=== PATIENT | male | born 1945 | race Caucasian/White ===

== ENCOUNTER 2019-03-19 16:33 | Observation (INO) | payer OTHER ==
[~2019-03-19] VITALS: Ht 177.8 cm; Wt 72.6 kg
[~2019-03-19 16:33] MED LIST: ALLOPURINOL100 MG PO; CLINDAMYCIN HC300 MG PO; COL100 PO; HYDROMORPHONE1 MG/M1 IV; LAC PO; LOV30I SC; NOR5 PO; NORCO1 TA2 PO; TOR30I IV; TYL325 PO; ZOFRAN4 M2 PO
[2019-03-19 16:52] VITALS: Ht 177.8 cm; Wt 72.6 kg
[2019-03-19 17:39] LABS: BASOPHIL % 0.7 % (0-2); PLATELET COUNT 167 x10^3mcL (130-400)
[2019-03-19 17:41] LABS: RED CELL DISTRIBUTION WIDTH 14.9 % (11.5-14.5)
[2019-03-19 17:52] LABS: CALCIUM 8.5 mg/dL (8.5-10.1); CARBON DIOXIDE 24.2 mmol/L (21-32); CHLORIDE SERUM 101 mmol/L (98-107); CREATININE SERUM 1.5 mg/dL (0.7-1.3); GLUCOSE SERUM 108 mg/dL (74-106); POTASSIUM SERUM 3.4 mmol/L (3.5-5.1); SODIUM SERUM 136 mmol/L (136-145)
[2019-03-19 18:03] LABS: ALBUMIN 1.8 g/dL (3.4-5.0); ALKALINE PHOSPHATASE 124 U/L (46-116); ALT/SGPT 35 U/L (16-63); AST/SGOT 55 U/L (15-37); BILIRUBIN TOTAL 2.3 mg/dL (0.20-1.00); TOTAL PROTEIN, SERUM 6.1 g/dL (6.4-8.2)
[2019-03-19] MEDS ORDERED: HYDROXYZINE HYD25 MG PO (19:27)
[2019-03-19] MEDS ORDERED: ASPIR 8181 MG PO (19:28)
[2019-03-19] MEDS ORDERED: ACT300 PO (19:28)
[2019-03-19] MEDS ORDERED: METOPROLOL SUCC50 M2 PO (19:28)
[2019-03-19] MEDS ORDERED: ALDACTONE25 MG PO (19:28)
[2019-03-19] MEDS ORDERED: LACTULOSE10 GM/152 PO (19:29)
[2019-03-19] MEDS ORDERED: FUROSEMIDE40 MG PO (19:29)
[2019-03-19] MEDS ORDERED: PROSCAR5 MG PO (19:29)
[2019-03-19] MEDS ORDERED: NATURE'S BLEND F1 MG PO (19:29)
[2019-03-19] MEDS ORDERED: PROTONIX40 MG PO (19:29)
[2019-03-19] MEDS ORDERED: DIG125 PO (19:30)
[2019-03-19 21:16] VITALS: BP 114/63
[2019-03-20 06:16] LABS: BASOPHIL % 0.5 % (0-2)
[2019-03-20 06:21] LABS: CALCIUM 8.4 mg/dL (8.5-10.1); CARBON DIOXIDE 27.1 mmol/L (21-32); CHLORIDE SERUM 105 mmol/L (98-107); CREATININE SERUM 1.5 mg/dL (0.7-1.3); GLUCOSE SERUM 81 mg/dL (74-106); POTASSIUM SERUM 3.8 mmol/L (3.5-5.1); SODIUM SERUM 140 mmol/L (136-145)
[2019-03-20 06:25] VITALS: BP 116/50
[2019-03-20 07:09] LABS: PLATELET COUNT 118 x10^3mcL (130-400); RED CELL DISTRIBUTION WIDTH 14.9 % (11.5-14.5)
[2019-03-20 08:47] VITALS: BP 105/49
[2019-03-20 13:40] VITALS: BP 105/49
[2019-03-20 17:26] VITALS: BP 105/55
[2019-03-20 19:28] VITALS: BP 124/62
[2019-03-21 05:43] VITALS: BP 100/43
[2019-03-21 09:19] VITALS: BP 117/62
[2019-03-21 17:04] VITALS: BP 134/45
== END 2019-03-21 18:52 | DRG 555 ==
LOC: ED 16:33 → MU 20:02
PROVIDERS: Emergency Medicine; ADMIT Internal Medicine
DX: M25.551 Pain in right hip (principal); E43 Unspecified severe protein-calorie malnutrition; K70.30 Alcoholic cirrhosis of liver without ascites; R54 Age-related physical debility; I10 Essential (primary) hypertension; D64.9 Anemia, unspecified; M10.9 Gout, unspecified; F10.21 Alcohol dependence, in remission
CPT/HCPCS: 36600; 83880; 92526-GN; 92610; 97110-GP; 97116-GP; 97530-GP; G0378; J1644; J7030; Q0092

== ENCOUNTER 2019-05-31 19:45 | Inpatient (IN) | payer OTHER ==
[~2019-05-31] VITALS: Ht 177.8 cm; Wt 82.0 kg
[~2019-05-31 19:45] MED LIST changes: +ACT300 PO; +ALDACTONE25 MG PO; +ASPIR 8181 MG PO; +DIG125 PO; +FUROSEMIDE40 MG PO; +HYDROXYZINE HYD25 MG PO; +LACTULOSE10 GM/152 PO; +METOPROLOL SUCC50 M2 PO; +NATURE'S BLEND F1 MG PO; +PROSCAR5 MG PO; +PROTONIX40 MG PO
--- NOTE | 2019-05-31 20:01 | NUR ---
PT BIBA FOR RECTAL BLEEDING. PER OUTBOARD MOTORBOAT RIGGER PT EXPERIENCE BLEEDING DURING BOWEL MOVEMENTS W/BRIGHT RED BLOOD. PT DENEIS PAIN AT THIS TIME. PT A/O X4. NO S/S OF DISTRESS. RESP E/U. AWAITING MSE. PT SITTING UP ON GURNEY. TALKING IN COMPLETE SENTENES. PT STS HE HAS FELT WEAK THE LAST FEW DAYS. COMFORT MEASURES IMPLEMENTED. FAMILY AT BEDSIDE WILL CONTINUE TO MONITOR.
--- NOTE | 2019-05-31 20:23 | NUR ---
LAB AT BEDSIDE.
[2019-05-31 20:50] LABS: PLATELET COUNT 133 x10^3mcL (130-400)
[2019-05-31 20:53] LABS: RED CELL DISTRIBUTION WIDTH 23.3 % (11.5-14.5)
[2019-05-31 21:09] LABS: BAND NEUTROPHIL 1 % (0-10); BASOPHIL 0 % (0-2); MONOCYTE 8 % (0-7); SEGMENTED NEUTROPHILS 50 % (37-75); ovalocyte/elliptocyte 1+; rbc morphology (normal/abnorm) ABNORMAL (NORMAL); target cell (codocyte) 1+; tear drop cell (dacryocyte) 1+
[2019-05-31 21:10] LABS: PLATELET MORPHOLOGY PLATELETS NORMAL
[2019-05-31 21:20] LABS: CARBON DIOXIDE 25.9 mmol/L (21-32); CHLORIDE SERUM 104 mmol/L (98-107); CREATININE SERUM 2.1 mg/dL (0.7-1.3); GLUCOSE SERUM 113 mg/dL (74-106); POTASSIUM SERUM 3.7 mmol/L (3.5-5.1); SODIUM SERUM 139 mmol/L (136-145)
[2019-05-31 21:27] LABS: ALKALINE PHOSPHATASE 120 U/L (46-116); ALT/SGPT 18 U/L (16-63); AST/SGOT 50 U/L (15-37); TOTAL PROTEIN, SERUM 6.3 g/dL (6.4-8.2)
[2019-05-31 21:31] LABS: ALBUMIN 1.7 g/dL (3.4-5.0); CHOLESTEROL 98 mg/dL (<200); HDL CHOLESTEROL 31 mg/dL (40-60)
--- NOTE | 2019-05-31 21:37 | NUR ---
PT MEDICATED PER ORDER. PT VERBALIZED UNDERSTANDING OF MEDICATION TEACHING. SEE EMAR FOR DETAILS.
[2019-05-31] MEDS ORDERED: ASPIR LOW81 MG PO (22:03)
[2019-05-31] MEDS ORDERED: XIFAXAN550 M1 PO (22:03)
[2019-05-31] MEDS ORDERED: FERROUS SULFAT325 M2 PO (22:04)
[2019-05-31] MEDS ORDERED: ESCITALOPRAM10 M1 PO (22:04)
--- NOTE | 2019-05-31 22:16 | NUR ---
REPORT GIVEN TO SAMAN FARAH TO ASSUME CARE OF PT. WHILE GIVING REPORT SOFI STS SHE NEEDS TO SPEAK W/CHARGE NURSE ABOUT BLOOD PRESSURE. WILL CALL BACK.
--- NOTE | 2019-05-31 22:32 | NUR ---
PT RECEIVED A/O X4, ABLE TO MAKE NEEDS KNOWN AND FOLLOW SIMPLE COMMANDS. TELE #14, DENIES ANY CP/PRESSURE. WEAK PEDAL PULSES, EDEMA TO BLE. BREATHING IS EVEN AND UNLABORED ON RA, NO RESP DISTRESS NOTED. ABD FIRM AND DISTENDED, BOWEL TONES HYPOACTIVE X4 QUAD, DENIES N/V. PT ADMITTED FOR RECTAL BLEED, NO RECTAL BLEED OBSERVED. PT HAS EPISODES OF URINARY INCONTINENCE. GENERALIZED WEAKNESS. DRSG IN PLACE TO LUE, CDI. PT NOTED WITH MANY SMALL SCABS AND SCATTERED RED DOTS. IV BOLUS ONGOING TO REJ PATENT AND INTACT, SITE WNL. ORIENTED PT TO ROOM AND CALL LIGHT. SPOUSE AT BEDSIDE. NO ACUTE DISTRESS NOTED. BED ALARM ON. CALL LIGHT WITHIN REACH. WILL CONT TO MONITOR.
--- NOTE | 2019-05-31 22:34 | NUR ---
RECEIVED PT FROM ED VIA GUERNEY, CAME IN FOR RECTAL BLEED. AAOX4. DENIES HEADACHE/DIZZINESS. NO SOB NOTED, LUNG SOUNDS DIMINISHED ON AUSCULTATION. DENIES CHEST PAIN/PRESSURE, SR W/ BBB. W/ +2 EDEMA ON BLE. WEAK PEDAL PULSES. DENIES ABDOMINAL PAIN/NAUSEA/VOMITING. ABDOMEN IS DISTENDED AND FIRM. BOWEL SOUNDS HYPAOCTIVE. VOIDS. W/ GENERALIZED BODY ERYTHEMA AND SCABS, BUE ECCHYMOSIS, 2 SKIN TEARS ON THE LUE, 2 OPEN WOUNDS ON RUE, NON-BLANCHABLE ERYTHEMA ON RIGHT HEEL AND RIGHT BUTTOCK. LEFT ARM SKIN TEARS WERE COVERED W/ OIL EMULSION, NON-ADHERENT DRESSING AND KERLIX DRESSING. IV SITE ON THE REJ GAUGE 20 IS PATENT AND INTACT. SIDE RAILS UPX2. CALL LIGHT ON REACH. HOBE ELEVATED AT 30 DEG. PRIMARY NURSE SOFI AT BEDSIDE FOR CONTINUITY OF CARE
--- NOTE | 2019-05-31 22:34 | NUR ---
PT TRANSFERRED TO TELE FLOOR BY NURSE AND EMT. PT CONNECTED TO MONITOR DURING TRANSFER. NO S/S OF DISTRESS. RESP E/U. PER TELE CHARGE NURSE AND HOUSE SUPERVISIOR, OK TO ADMIT TO TELE FLOOR. RN MADE AWARE OF FLUIDS. IV SITE PATENT.
[2019-05-31 23:10] VITALS: BP 93/54
[2019-06-01] VITALS (7 sets, daily range): BP systolic 81–102; BP diastolic 35–55
--- NOTE | 2019-06-01 00:09 | NUR ---
RECEIVED CALL BACK FROM DR NICHOLSON. DR NICHOLSON MADE AWARE OF PT WITH POSSIBLE SCABIES, ORDERS RECEIVED FOR WOUND CONSULT AND MEDICATIONS.
--- NOTE | 2019-06-01 01:42 | NUR ---
BOLUS COMPLETED. BP-84/35 (51) HR-63, RECHECK-81/45 (57) HR-61. PT IN NO ACUTE DISTRESS. DR NICHOLSON CALLED AND MADE AWARE. ORDERS RECEIVED.
--- NOTE | 2019-06-01 02:08 | NUR ---
ALBUMIN IV INITIATED ORDERED. PER DR NICHOLSON, " LONG PATIENT IS ALERT AND ORIENTED, THE SYSTOLIC BP OF 85-90 IS OKAY BECAUSE PT HAS HX OF LIVER CIRRHOSIS." PT IN NO ACUTE DISTRESS. WILL CONT TO MONITOR.
--- NOTE | 2019-06-01 04:22 | NUR ---
ALBUMIN IV DONE INFUSING, BP-102/48 (66) HR-69. NO ACUTE DISTRESS NOTED. WILL CONT TO MONITOR.
--- NOTE | 2019-06-01 06:37 | NUR ---
PT SLEPT AT INTERVALS THROUGHOUT THE EVENING. BREATHING IS EVEN AND UNLABORED, NO RESP DISTRESS NOTED. PT DENIES HAVING ANY PAIN AT THIS TIME. SL TO REJ, PATENT AND INTACT, SITE FREE FROM REDNESS OR SWELLING. NO ACUTE CHANGES ENCOUNTERED DURING SHIFT. ALL NEEDS MET AND ANTICIPATED. CALL LIGHT WITHIN REACH. WILL ENDORSE CARE TO AM NURSE.
[2019-06-01 07:09] LABS: PLATELET COUNT 82 x10^3mcL (130-400); RED CELL DISTRIBUTION WIDTH 23.4 % (11.5-14.5)
[2019-06-01 07:20] LABS: ALKALINE PHOSPHATASE 78 U/L (46-116); ALT/SGPT 19 U/L (16-63); AST/SGOT 39 U/L (15-37); BILIRUBIN TOTAL 1.6 mg/dL (0.20-1.00); CALCIUM 8.8 mg/dL (8.5-10.1); CARBON DIOXIDE 25.4 mmol/L (21-32); CHLORIDE SERUM 107 mmol/L (98-107); CREATININE SERUM 1.7 mg/dL (0.7-1.3); GLUCOSE SERUM 77 mg/dL (74-106); POTASSIUM SERUM 3.2 mmol/L (3.5-5.1); SODIUM SERUM 143 mmol/L (136-145)
[2019-06-01 07:26] LABS: ALBUMIN 2.2 g/dL (3.4-5.0); TOTAL PROTEIN, SERUM 5.7 g/dL (6.4-8.2)
--- NOTE | 2019-06-01 07:40 | NUR ---
RECEIVED PT FROM LAWN CARE TECHNICIAN. ASSESSED AND WILL DOCUMENT. DENIES ANY PAIN THIS TIME. NO RECAL BLEEDING NOTED THIS TIME. SAFTEY PRECAUTIONS ARE IN PLACE. WILL MONITOR.
--- NOTE | 2019-06-01 09:20 | NUR ---
AND SEEN THE PT. SAID HE IS OREDERING SANDOSTATIN DRIP AND VIT K DRIP AND ALSO BLOOD. INFORMED ABOUT PT K=3.2 AND BP 95/36 WITH MAP 55. SAID HE WILL TRANSFER PT TO ICU. CHARGE NURSE AWARE. PT IS STABLE BUT SLIGHTLY LETHARGIC.
--- NOTE | 2019-06-01 09:50 | NUR ---
TRANSFERED PT TO ICU PER ORDER. PT IS STABLE BUT SLIGHTLY LETHARGIC. DENIES ANY PAIN. PT'S IS COMING DOWN WITH PT. GAVE REPORT TO ICU NURSE.
--- NOTE | 2019-06-01 09:55 | NUR ---
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 PT LETHARGIC BUT ORIENTED TO PERSON, PLACE, TIME. PERRL. NO FACIAL DROOP NOTED. SPEECH SLOW BUT CLEAR AND APPROPRIATE. SINUS WITH OCCASSIONAL PVC'S NOTED. VS: TEMP = 97.8, BP = 92/50 (64), HR = 78, RR = 12, O2 92%, PAIN = 8/10 ALL THROUGHOUT BODY, BREATHING E/U. SYMMETRICAL CHEST WALL EXPANSION NOTED. S1/S2 HEART SOUNDS AUDIBLE. DENIES CP AT THIS TIME. MOD PALPABLE PULSES TO BUE, WEAK PULSES TO BLE. SKIN IS WARM/DRY TO TOUCH, PALE IN COLOR. SCATTERED PETECHIAE AND SCABS NOTED ALL THROUGHOUT BODY. +2 PITTING EDEMA NOTED TO BLE. PIV TO R EJ INTACT, PORT PATENT, DRESSING CDI. ABD IS FIRM, DISTENDED, AND TENDER. NO BM AT THIS TIME. NO PENILE DISCHARGE OR BLEEDING NOTED.
--- NOTE | 2019-06-01 10:30 | NUR ---
PT PLACED ON 4L NASAL CANNULA DUE TO O2 SAT OF 90%.
--- NOTE | 2019-06-01 10:45 | NUR ---
ATTEMPTED TO PUT IN LEYVA CATHETER IN PT BY ME AND CARLITA DAVISON. UNCESSFUL ATTEMPT. SPOKE TO ABOUT THE NEED TO PUT A LEYVA CATHETER IN PT AND PT'S STATED THAT "SHE DID NOT WANT HIM TO BE IN PAIN AND WANTED TO DISCUSS WITH OTHER FAMILY MEMBERS ABOUT PUTTING THE PT ON HOSPICE CARE". HELD OFF ON PUTTING LEYVA CATHETER AT THIS TIME.
[2019-06-01 11:07] LABS: BAND NEUTROPHIL 0 % (0-10); BASOPHIL 0 % (0-2); MONOCYTE 9 % (0-7); SEGMENTED NEUTROPHILS 56 % (37-75)
[2019-06-01 11:08] LABS: PLATELET MORPHOLOGY PLATELETS DECREASED; rbc morphology (normal/abnorm) ABNORMAL (NORMAL)
[2019-06-01 11:09] LABS: ovalocyte/elliptocyte 1+
--- NOTE | 2019-06-01 12:21 | NUR ---
UNABLE TO GIVE ALBUMIN AT THIS TIME DUE TO NO IV ACCESS ON PT. DR. FINK NOTIFIED
--- NOTE | 2019-06-01 12:51 | NUR ---
PT TALKING WITH FAMILY AT BEDSIDE. REMAINS ON 4L NASAL CANNULA. BREATHING E/U. SYMMETRICAL CHEST WALL EXPANSION NOTED. NO S/S OF RESP DISTRESS. IV TO R EJ INTACT, PORT PATENT, DRESSING CDI. SANDOSTATIN GTT INFUSING @ 25 ML/HR
--- NOTE | 2019-06-01 13:00 | NUR ---
O2 SAT OF 100%. TITRATED TO 2L NASAL CANNULA.
--- NOTE | 2019-06-01 13:45 | NUR ---
SPOKE TO PT'S , PATRICK, ABOUT PLACING THE LEYVA CATHETER IN PT AGAIN AND SHE STATED THAT SHE STILL IS NOT COMFORTABLE WITH DOING THE PROCEDURE.
--- NOTE | 2019-06-01 14:44 | NUR ---
ERICK DAVISON FROM SURGERY ATTEMPTING TO PLACE IV IN PT TO INITIATE BLOOD TRANSFUSION.
--- NOTE | 2019-06-01 14:50 | NUR ---
SUCCESSFULLY INSERTED 18 G IV TO R FA BY ERICK DAVISON. IV INTACT, FLUSHED WELL, NO S/S OF INFILTRATION, GOOD BLOOD RETURN NOTED.
--- NOTE | 2019-06-01 15:25 | NUR ---
DR. ARRIAGA CONTACTED DUE TO PT'S INCREASED LETHARGY AND SLOW SPEECH. UPDATED DR. ARRIAGA ABOUT RESCHEDULED EGD FOR TOMORROW BY DR. FINK AND THAT THE PT'S DOES NOT WANT THE LEYVA INSERTED. NO NEW ORDERS AT THIS TIME.
--- NOTE | 2019-06-01 15:30 | NUR ---
DR. FINK CONTACTED DUE TO PT'S INCREASINGLY ALTERED CONDITION. WAITING DATA KEYER BACK AT THIS TIME.
--- NOTE | 2019-06-01 16:25 | NUR ---
PLACED PT ON ISOGEL MATTRESS. TURNED AND REPOSITIONED PT. CHUCKS CHANGED, GOWN CHANGED, SHEETS CHANGED. FULL BACK SEEN. OPTIFOAM TO BUTTOCKS AREA FOR PREVENTION, NO BLANCHABLE REDNESS NOTED. PT TOLERATED WELL. NO ACUTE DISTRESS NOTED. WILL CONT TO MONITOR.
--- NOTE | 2019-06-01 17:00 | NUR ---
1 UNIT OF PRBC'S INITIATED AT THIS TIME. VS: TEMP = 98.0, HR = 73, BP = 91/44, RR = 12, O2 = 98%. VERIFIED WITH CARLITA DAVISON (SEE BLOOD BANK SHEET FOR DETAILS). WILL CONT TO MONITOR.
--- NOTE | 2019-06-01 17:59 | NUR ---
PT URINATED IN BED. PT WIPED DOWN, CHUCKS CLEANED, GOWN CHANGED, SHEETS CHANGED. PT TOLERATED WELL. NO ACUTE SIGNS OF DISTRESS NOTED.
--- NOTE | 2019-06-01 18:16 | NUR ---
1715: PT'S VS: TEMP = 98.0, HR = 73, BP = 99/42, RR = 12, O2 = 98%. NO S/S OF ADVERSE REACTIONS NOTED. 1816: 1 UNIT OF PRBC COMPLETED. VS: TEMP = 97.8, HR = 71, BP = 84/49, RR = 12, O2 = 98%. BLOOD BANK SHEET COMPLETED IN CHART. PT TOLERATED WELL WITH NO COMPLICATIONS. WILL CONT TO MONITOR
--- NOTE | 2019-06-01 19:00 | NUR ---
GIVEN REPORT TO EDNA DAVISON. ALL QUESTIONS ANSWERED AND ADDRESSED. WILL ENDORSE CARE TO RN.
--- NOTE | 2019-06-01 19:50 | NUR ---
REVEIVED PT IN BED DROWSY, BUT ALERT AND ORIENTED. SPEECH IS SLOW, SLURRED, BUT APPROPRIATE. FAMILY AT BEDSIDE. LUNG SOUNDS DIMINISHED. PT ON 2L O2 VIA N/C. DENIES VHEST PAIN OR PRESSURE. NSR WITH BBB, OCCASSIONAL PVC'S NOTED. BS ACTIVE IN ALL FOUR QUADS. NO ABD PAIN NOTED. PT USES URINAL WITH ASSISTANCE. REDNESS AND SCATTERED SCABS THROUGH OUT BODY. EDEMA +2 NOTED TO BLE. PT HAS REJ AND RFA IV ACCESS. D5NS INFUSING AT 80ML/HR. SANDOSATIN INFUSING AT 25ML/HR. ALL NEEDS TENDED. SHIFT ASSESSMENT COMPLETED. WILL CONTINUE TO MONITOR CLOSELY.
--- NOTE | 2019-06-01 21:35 | NUR ---
ALL DUE MEDS GIVEN ORDERED, PT TOLERATED WELL. ASSISTED PT WITH URINAL VOIDED 300ML. REPOSITIONED FOR COMFORT. ALL NEEDS TENDED TO. WILL CONTINUE TO MONITOR CLOSELY.
--- NOTE | 2019-06-01 23:53 | NUR ---
PT APPEARS TO BE SLEEPING WITH EYES CLOSED, EASILY AROUSABLE. ASSESSMENT COMPLETED. IVF ONGOING. ALL NEEDS TENDED TO. WILL CONTINUE TO MONITOR CLOSELY.
[2019-06-02] VITALS: BP 135/113
[2019-06-02 04:00] VITALS: BP 97/46
--- NOTE | 2019-06-02 04:00 | NUR ---
CHANGED DRESSING TO SKIN TEAR ON LFA. PT CONTINUOUSLY PICKING AT SCABS AND ITCHING SKIN. SHIFT ASSESSMENT COMPLETED. ALL NEEDS TENDED TO. WILL CONTINUE TO MONITOR CLOSELY.
[2019-06-02 05:48] LABS: BASOPHIL % 1.1 % (0-2)
[2019-06-02 06:03] LABS: PLATELET COUNT 90 x10^3mcL (130-400); RED CELL DISTRIBUTION WIDTH 22.6 % (11.5-14.5)
[2019-06-02 06:04] LABS: ALKALINE PHOSPHATASE 89 U/L (46-116); ALT/SGPT 17 U/L (16-63); AST/SGOT 42 U/L (15-37); BILIRUBIN TOTAL 2.85 mg/dL (0.20-1.00); CALCIUM 8.6 mg/dL (8.5-10.1); CARBON DIOXIDE 24.7 mmol/L (21-32); CHLORIDE SERUM 113 mmol/L (98-107); CREATININE SERUM 1.7 mg/dL (0.7-1.3); GLUCOSE SERUM 122 mg/dL (74-106); MAGNESIUM 1.7 mg/dL (1.8-2.4); POTASSIUM SERUM 3.6 mmol/L (3.5-5.1); SODIUM SERUM 144 mmol/L (136-145)
[2019-06-02 06:05] LABS: ALBUMIN 2.1 g/dL (3.4-5.0); TOTAL PROTEIN, SERUM 5.6 g/dL (6.4-8.2)
--- NOTE | 2019-06-02 06:40 | NUR ---
PT HAS SLEPT ON AND OFF THROUGH OUT THE NIGHT. NO DISTRESS NOTED. RESTING IN BED NOW. AT BEDSIDE THIS AM. CALL LIGHT WITHIN REACH. BED IS IN LOWEST POSITION. CHECK LIST COMPLETED FOR EGD. ALL NEEDS TENDED TO. WILL ENDORSE TO INCOMING SHIFT.
--- NOTE | 2019-06-02 08:46 | NUR ---
DR FINK AT BEDSIDE TO SPEAK WITH PATIENT'S AND FAMILY. ALL QUESTIONS AND CONCERNS ADDRESSED. DR FINK EXPLAINED EGD WITH BENEFITS AND RISKS DISCUSSED. CONSENT OBTAINED FROM PATIENT'S AND PLACED IN CHART.
--- NOTE | 2019-06-02 08:55 | NUR ---
DR FINK AND GI TEAM AT BEDSIDE FOR EGD. TIME OUT TAKEN WITH ALL PARTIES IN AGREEMENT.
--- NOTE | 2019-06-02 09:10 | NUR ---
EGD COMPLETED. PATIENT RECEIVED 50 MCG FENTANYL AND 3MG VERSED IVP FOR SEDATION. NO ACTIVE BLEED PER DR FINK. PATIENT MAY RESUME DIET WHEN AWAKE. PATIENT'S MALIK UPDATED BY DR FINK WITH ALL QUESTIONS AND CONCERNS ADDRESSED.
--- NOTE | 2019-06-02 09:30 | NUR ---
PATIENT'S MALIK WENT HOME BUT WOULD LIKE DR ZHANG TO TELEPHONE HER AT AND PROVIDED AN UPDATE. WILL ENDORSE TO PRIMARY SAMAN ASHFORD.
--- NOTE | 2019-06-02 11:51 | NUR ---
DR ARRIAGA AT BEDSIDE TO ASSESS PATIENT. POC DISCUSSED WITH MALIK RICARDO INCLUDING HOPSICE CARE. IN AGREEMENT SPEAKING WITH HOSPICE TO ARRANGE FOR PATIENT TO GO HOME.
[2019-06-02 11:59] VITALS: BP 92/54
--- NOTE | 2019-06-02 12:16 | NUR ---
Initial Nutrition Assessment: IC08/A SEAN SIGALA HR Dx: Rectal bleeding, anemia PMHx: Alcoholic liver cirrhosis, HTN, Hyperlipidemia, gout PSHx: L knee replacement Labs: BG 122H, BUN 43H, CREAT 1.7H, ALB 2.1L, HGB 7.8L Meds: D 5%, lactulose, zofran Diet: NPO (possible EGD), (06/01) Full liquid diet PO Intake: (06/01) breakfast 90% Ht: 177.8 cm (70") Wt: 76.6 kg (168#) BMI: 24.3 kg/m2 Bed scale: 76.6 kg IBW: 166# (75 kg) %IBW: 101 UBW: unable to access Age: 73/M Food Allergies: NKFA Skin: scattered scabs, redness throughout body Govind: 15 Edema: +2 BLE GI: Last BM: no BM noted Per H&P, Pt is a 73 Y old male diagnosed with alcoholic liver cirrhosis in 10/2018. Patient has extensive excoriation on his extremities and torso due to itchiness from liver cirrhosis. RDN Visit (06/02): Patient is still lethargic and has sedation effect. Per RN, Pt. will be fed once pt. is alert. Per progress note (06/02), Patient had EGD this AM and no apparent source of bleeding was identified. He possibly has been bleeding from hemorrhoids or diverticulosis. Patient's diet has been progressed to 2gm Na. Pt's. at bedside was sleeping. Problem with: N/V/D/C: none, no rectal bleeding Problems with: Chewing/Swallowing: unable to access as pt is lethargic, has sedation effect. Current appetite: unable to access Recent wt change: unable to access %wt change: n/a Vitamin/Supplement use: unable to access Special diet at home: unable to access Physical activity: unable to access Nutrition education given: not appropriate at this time Food-drug interactions: none Education given: n/a Estimated Nutritional Needs Based on current body weight 76.6 kg Energy: 8427-3784 kcal/d (25-30 kcal/kg) Protein: 76-92 g/d (1.0-1.2 g/kg)- liver cirrhosis Fluid: 7713-9210 ml/d (1 ml/kcal) or per doctor Nutrition Diagnosis 1. Inadequate oral intake related to medical condition as evidenced by pt. being NPO for procedure and on liquid diet previously. 2. Altered GI function related to possible hemorrhoids/ diverticulitis as evidenced by previous progress note, reports. Intervention 1. Recommend continuing 2gm Na diet as tolerated. Monitor/Evaluate Goal: PO intake at least 75% of estimated needs Monitor: PO intake, Labs, GI function F/U in 2-3 days as high risk 06/04-
--- NOTE | 2019-06-02 12:16 | NUR ---
1. Recommend continuing 2gm Na diet as tolerated.
--- NOTE | 2019-06-02 12:54 | NUR ---
WOUND CARE EVALUATION NOTE: REASON FOR EVALUATION: LOW BETTY SCALE AND SKIN TEAR WOUNDS SKIN ASSESSMENT DONE WITH THIS 73 Y/O MALE PT ADMITTED TO [facility] [place] WITH INITIAL DX RECTAL BLEEDING. PAST MEDICAL HX INCLUDES ALCHOHOLIC LIVER CIRRHOSIS, HTN HYPERLIPIDEMIA, GOUT AND CHRONIC PSORIASIS WITH DRY LESIONS. ALL ABOVE INFORMATION OBTAINED FROM ADMISSION H&P AND , SHE IS AAX4. PT SKIN IS WARM AND MOIST, BUE MULTIPLE ECCHYMOSIS FROM BLOOD DRAW AND SKIN TEARS. MUITIPLE DRY LESIONS/SCABS TO EAR, LIPS AND NECK DOWN TO TRUCK OF BODY. BLE WITH DRY FLAKY SKIN, NO HAIR GROWTH, NO EDEMA. DORSAL PEDAL PULSES PRESENT AND NORMAL. PLAN OF CARE DISCUSSED WITH PRIMARY RN AND , VERBALIZES UNDERSTANDING. INTEGUMENTARY: -MULTIPLE SKIN TEARS TO BUE WITH LARGEST TO LEFT FOREARM 7X4CM SUPERFICIAL DEPTH, DRESSING DCI -DRY SCABS /DRY LESION FROM NECK DOWN TO TRUNK OF BODY -GENERNALIZES PURPLE DOTS SKIN CONDITION WITH DX OF PETECHIA PER PCP -BLE DRYNESS WITH SKIN INTACT -BILATERAL HEELS BLANCHABLE REDNESS, SKIN INTACT RECOMMENDATIONS: -CLEANSE MULTIPLE SKIN TEAR WITH NS. PAT DRY, APPLY VESATEL DRESSING Q5DAYS AND PRN IF SOILING -APPLY HYDRAGUARD TO EARS, NECK DOWN TOBILATERAL LOWER EXTREMITIES/FEET/HEELS BID AND LEAVE IT OPEN TO AIR -OFFLOAD BILATERAL HEELS BY PLACING PILLOWS UNDER CALVES UNLESS OTHERWISE CONTRAINDICATED -PRESSURE REDISTRIBUTION SURFACE THERAPY -TURN AND REPOSITION Q2H, OFFLOAD RIGHT, LEFT EARS AND SACRALCOCCYX -KEEP SKIN DRY AND CLEAN AT ALL TIMES -CONTINUE TO FOLLOW RD RECOMMENDATIONS PLEASE CONTACT WOUND CARE NURSE FOR ANY QUESTION AND CHANGE OF WOUND CONDITION.
[2019-06-02 15:05] VITALS: BP 92/52
--- NOTE | 2019-06-02 17:21 | NUR ---
PATIENT'S FAMILY MEETING IN ICU QUIET ROOM WITH QUAN FROM HOSPICE FACILITY.
[2019-06-02 17:22] VITALS: BP 96/45
--- NOTE | 2019-06-02 18:27 | NUR ---
MEETING COMPLETE WITH ALL [facility]. MALIK AND FAMILY HAS DECIDED TO ACCEPT ON TO HOSPICE SERVICES. POTENTIAL DISCHARGE HOME HOSPICE TOMORROW 06/02/19.
--- NOTE | 2019-06-02 20:01 | NUR ---
RECEIVED REPORT FROM SAMAN MAZARIEGOS. PT IS ALERT TO SELF. GARBLED SPEECH. LUNG SOUNDS CLEAR TO BILATERAL UPPER, LOBES, DIMINSHED TO BILATERAL LOWER LOBES. PT IS BREATHING E.U ON 2L NC. S1 S2 HEART SOUNDS AUSCULTATED. PULSES MODERATE X2 BUE, WEAK BLE. ABD IS SOFT AND FLAT WITH ACTIVE BOWEL SOUNDS X4Q. SKIN IS WARM AND PALE. CAP REFILL <3 SECS X4. PT HAS PERIPHERAL IV TO RIGHT JUGULAR AND RIGHT FA PATENT, DRESSING CDI. D5NS INFUSING AT 80 ML/HR AND SANDOSTATIN INFUSING AT 25 ML/HR. PT HAS SCABBING AND ECCHYMOSIS TO BUE. ALL QUESTIONS AND CONCERNS ANSWERED. WILL CONTINUE TO MONITOR.
--- NOTE | 2019-06-02 21:29 | NUR ---
PROVIDED PATIENT WITH MEDICATIONS CRUSHED AND IN APPLE SAUCE. RAISED HEAD OF BED 90 DEGREES. PT TOLERATED WELL.
--- NOTE | 2019-06-02 22:57 | NUR ---
PROVIDED PT WITH TYLENOL FOR COMPLAINTS OF MILD PAIN TO ABD. WILL CONTINUE TO MONITOR.
--- NOTE | 2019-06-03 05:08 | NUR ---
PT PROVIDED WITH FULL BED BATH. NEW GOWN PROVIDED. PT TOLERATED WELL.
[2019-06-03 05:27] LABS: BASOPHIL % 0.6 % (0-2)
[2019-06-03 05:28] LABS: ALKALINE PHOSPHATASE 92 U/L (46-116); ALT/SGPT 16 U/L (16-63); AST/SGOT 37 U/L (15-37); BILIRUBIN TOTAL 2.29 mg/dL (0.20-1.00); CALCIUM 8.4 mg/dL (8.5-10.1); CARBON DIOXIDE 24.1 mmol/L (21-32); CHLORIDE SERUM 116 mmol/L (98-107); CREATININE SERUM 1.5 mg/dL (0.7-1.3); GLUCOSE SERUM 128 mg/dL (74-106); SODIUM SERUM 148 mmol/L (136-145)
[2019-06-03 05:31] LABS: ALBUMIN 1.9 g/dL (3.4-5.0); TOTAL PROTEIN, SERUM 5.6 g/dL (6.4-8.2)
[2019-06-03 05:32] LABS: PLATELET COUNT 93 x10^3mcL (130-400); RED CELL DISTRIBUTION WIDTH 23.6 % (11.5-14.5)
[2019-06-03 07:02] VITALS: Ht 177.8 cm; Wt 82.0 kg
--- NOTE | 2019-06-03 07:15 | NUR ---
PT HAS MITTENS ON HANDS TO PREVENT PATIENT FROM SCRATCHING. WILL CONTINUE TO MONITOR AND ASSESS NECESSITY OF MITTENS.
[2019-06-03 07:30] VITALS: BP 100/51
--- NOTE | 2019-06-03 09:56 | NUR ---
DR. ARRIAGA AT BEDSIDE. UPDATES PROVIDED, QUESTIONS ANSWERED. DR. ARRIAGA RECOMMENDED DISCONTINUING SANDOSTATIN AND IV FLUIDS AT THIS TIME. WILL CARRY OUT NEW ORDERS.
--- NOTE | 2019-06-03 09:58 | NUR ---
DR. ARRIAGA AT BEDSIDE TO SEE AND ASSESS PT. PT'S PATRICK AT BEDSIDE BEING UPDATED ON PLAN OF CARE. WILL CONT TO MONITOR.
--- NOTE | 2019-06-03 10:22 | NUR ---
ISAIAH FROM CASE MANAGEMENT CALLED. UPDATES PROVIDED REGARDING PLAN FOR DISCHARGING TO HOME ON HOSPICE CARE, QUESTIONS ANSWERED.
--- NOTE | 2019-06-03 10:45 | NUR ---
DR. FINK AT BEDSIDE, WANTS TO CONTINUE PT ON SANDOSTATIN UNTIL BAG IS EMPTY & WANTS IV FLUIDS TO BE AT TKO RATE. DR. FINK ASKED PT IF HE WOULD LIKE PARACENTESIS FOR COMFORT BEFORE GOING HOME, PT SAID YES. WILL CARRY OUT UPDATES PER DR. FINK.
[2019-06-03 12:00] VITALS: BP 105/64
--- NOTE | 2019-06-03 12:38 | NUR ---
MITTENS REMOVED FROM HANDS, PT NOT SCRATCHING SELF AT THIS TIME.
--- NOTE | 2019-06-03 14:21 | NUR ---
TIME OUT COMPLETED AT THIS TIME BY MYSELF WITH TECHNOLOGIES DIVISION CHAIR RENATA AND RADIOLOGIST DR. MAYS. ALL IN AGREEMENT WITH PARACENTESIS PROCEDURE.
--- NOTE | 2019-06-03 15:05 | NUR ---
RLQ PARACENTESIS COMPLETED AT THIS TIME WITH A TOTAL OF 4,180 ML OUTPUT NOTED. BOTTLES LABELED AND SENT TO LAB FOR TESTING. PT TOLERATED PROCDURE WELL. BANDAID APPLIED OVER SITE. NIBP 110/48 MAP 57 HR 88 RESP 15 SPO2 98%. PT REMAINS STABLE. PRIMARY RN AWARE OF THE ABOVE. WILL CONT TO MONITOR.
[2019-06-03 15:30] VITALS: BP 114/65
[2019-06-03] MEDS ORDERED: LOT20 PO (16:08)
[2019-06-03 16:57] LABS: APPEARANCE FLUID HAZY; COLOR FLUID YELLOW; LYMPHOCYTE FLUID 20 %; MONOCYTE FLUID 61 %; RBC FLUID 340 /cumm; SOURCE FLUID ASCITES; WBC FLUID 180 /cumm
--- NOTE | 2019-06-03 17:15 | NUR ---
TRANSPORTATION ARRIVED @ 1700 FOR PT TO GO HOME ON HOSPICE. BEDSIDE RN REVIEWED DISCHARGE PAPERWORK WITH OF PT, PT'S VERBALIZED UNDERSTANDING. PHOTOS OF SKIN ALTERATIONS TAKEN AND PLACED IN CHART. ALL ID BANDS AND IV'S REMOVED, CATHETER TIPS INTACT. ALL BELONGINGS SENT WITH PT. PT STABLE UPON DISCHARGE.
== END 2019-06-03 17:22 | disposition hospice, home (50) | DRG 432 ==
LOC: ED 19:45 → IC 21:41 → DU 21:41 → IC 06-01 09:54
PROVIDERS: Emergency Medicine; Internal Medicine; Internal Medicine Gastroenterology; ADMIT Internal Medicine Pulmonary Disease
PROC: 0DJ08ZZ Inspection of Upper Intestinal Tract, Via Natural or Artificial Opening Endoscopic (ICD-10-PCS; principal; 2019-06-02 08:00)
DX: K70.30 Alcoholic cirrhosis of liver without ascites (principal); G93.41 Metabolic encephalopathy; E43 Unspecified severe protein-calorie malnutrition; K57.31 Diverticulosis of large intestine without perforation or abscess with bleeding; J98.11 Atelectasis; K76.6 Portal hypertension; D68.4 Acquired coagulation factor deficiency; K72.90 Hepatic failure, unspecified without coma; M10.9 Gout, unspecified; K64.8 Other hemorrhoids; K31.89 Other diseases of stomach and duodenum; I10 Essential (primary) hypertension; I95.9 Hypotension, unspecified; F10.20 Alcohol dependence, uncomplicated; Y90.0 Blood alcohol level of less than 20 mg/100 ml; Z96.652 Presence of left artificial knee joint; R23.3 Spontaneous ecchymoses
CPT/HCPCS: 43235; 49083; 82962; 87116; 87206; 88344; C1729; C9113; G0378; J0171; J1200; J1610; J1956; J2250; J2310; J2354; J2916; J3010; J3430; J3475; J3480; J3490; J7030; J7040; J7042; J7050; P9016; P9047; Q0092